=== PATIENT | male | born 1975 | race Caucasian/White ===

== ENCOUNTER 2020-06-14 07:21 | Outpatient (CLI) | payer OTHER, SELFPAY ==
--- NOTE | 2020-06-14 08:16 | ECHO_ITS ---
Patient Info Name: Sony Joyner Age: 45 years : 1975 Gender: Male Ht: 72 in Wt: 240 lbs BSA: 2.38 m2 HR: 76 bpm BP: 142 / 103 mmHg Technical Quality: Good Exam Date: 06/14/2020 8:27 AM Exam Location: [facility] Pulmonary Patient Status: Outpatient Admit Date: 06/14/2020 Staff Ordering Physician: Tramaine Jimenez DO Chronic Care Nurse: Mannie Camara RDCS, RT Attending Provider: Tramaine Jimenez DO Referring Physician: Tony VALDIVIA; Exam Type: CA echo doppler color flow Study Info Indications R06.02 - Shortness of breath Complete two-dimensional, color flow and Doppler transthoracic echocardiogram is performed. Summary 1. Left ventricular chamber dimension is normal. 2. Left ventricular systolic function is normal, estimated at 60-65%. 3. The left ventricular diastolic function is normal. 4. E/e' 9 is minimally elevated. 5. Global longitudinal strain is normal at -18.1%. Left Ventricle E/e' 9 is minimally elevated. Global longitudinal strain is normal at -18.1%. Left ventricular chamber dimension is normal. Left ventricular systolic function is normal, estimated at 60-65%. The left ventricular diastolic function is normal. Right Ventricle Right ventricular chamber dimension is normal. Right ventricular systolic function is normal. Left Atria Left atrial chamber dimension is normal. Right Atria Right atrial chamber dimension is normal. Aortic Valve The aortic valve is trileaflet. There is no aortic valve stenosis. There is no aortic valve regurgitation. Pulmonic Valve There is no pulmonic regurgitation. Mitral Valve There is no mitral valve stenosis. There is no mitral valve regurgitation. Tricuspid Valve There is no tricuspid valve regurgitation. Pericardium/Pleural There is no pericardial effusion. Inferior Vena Cava Normal inferior vena cava with >50% collapse upon inspiration consistent with normal right atrial pressure, 5 mmHg. Aorta The aortic root size at the sinus of Valsalva is normal. Left Ventricular Outflow Tract Name Value Normal LVOT 2D LVOT Diameter 2.4 cm LVOT Doppler LVOT Peak Gradient 2 mmHg LVOT Mean Gradient 1 mmHg LVOT VTI 15 cm LVOT VTI/AV VTI Ratio 0.8 LVOT Stroke Volume 71 ml LVOT CO 5.6 l/min LVOT CI 2.3 l/min/m2 Mitral Valve Name Value Normal MV Doppler MV Decel Antelope 430 cm/s2 MV PHT 59 ms MV Area (PHT) 3.8 cm2 4.0-5.0 MV Diastolic Function MV E Peak Velocity 87 cm/s MV A
--- NOTE | 2020-06-14 08:16 | EST_ITS ---
Patient Info Name: Sony Joyner Age: 45 years : 1975 Gender: Male Ht: 72 in Wt: 240 lbs BSA: 2.38 m2 Exam Date: 06/14/2020 10:18 AM Exam Location: [facility] Stress Patient Status: Outpatient Admit Date: 06/14/2020 Staff Ordering Physician: Tramaine Jimenez DO Attending Provider: Tramaine Jimenez DO Exercise Technologist: Isabella Gnozalez RDCS Exercise Physician: Tramaine Jimenez DO Exam Type: CA stress test treadmill Study Info Indications R06.02 - Shortness of breath R07.9 - Chest pain, unspecified A treadmill exercise stress test was performed. Summary 1. 1. Negative [facility]as exercise stress test for ischemic ST changes by ECG criteria. 2. 2. Good functional capacity, achieving 12 METs of workload. 3. 3. Appropriate HR response to exercise. 4. 4. Appropriate HR recovery at 1 minute post exercise. 5. 5. No imaging with stress testing. 6. 6. Patient informed of the above results. Protocol: [facility] Stress ECG Details Stage: REST Duration (min): 7 min : 39 sec Speed (mph): 0.0 Grade (%): 0 HR (bpm): 76 SBP (mmHg): 140 DBP (mmHg): 79 METS: --- Stage: REST Duration (min): 16 min : 58 sec Speed (mph): 0.0 Grade (%): 0 HR (bpm): 89 SBP (mmHg): 140 DBP (mmHg): 79 METS: --- Stage: STAGE 1 Duration (min): 1 min : 0 sec Speed (mph): 1.7 Grade (%): 10 HR (bpm): 105 SBP (mmHg): 140 DBP (mmHg): 79 METS: --- Stage: STAGE 1 Duration (min): 2 min : 0 sec Speed (mph): 1.7 Grade (%): 10 HR (bpm): 108 SBP (mmHg): 140 DBP (mmHg): 79 METS: --- Stage: STAGE 1 Duration (min): 3 min : 0 sec Speed (mph): 1.7 Grade (%): 10 HR (bpm): 112 SBP (mmHg): 136 DBP (mmHg): 82 METS: --- Stage: STAGE 2 Duration (min): 1 min : 0 sec Speed (mph): 2.5 Grade (%): 12 HR (bpm): 125 SBP (mmHg): 136 DBP (mmHg): 82 METS: --- Stage: STAGE 2 Duration (min): 2 min : 0 sec Speed (mph): 2.5 Grade (%): 12 HR (bpm): 130 SBP (mmHg): 150 DBP (mmHg): 80 METS: --- Stage: STAGE 2 Duration (min): 3 min : 0 sec Speed (mph): 2.5 Grade (%): 12 HR (bpm): 134 SBP (mmHg): 150 DBP (mmHg): 80 METS: --- Stage: STAGE 3 Duration (min): 1 min : 0 sec Speed (mph): 3.4 Grade (%): 14 HR (bpm): 142 SBP (mmHg): 158 DBP (mmHg): 79 METS: --- Stage: STAGE 3 Duration (min): 2 min : 0 sec Speed (mph): 3.4 Grade (%): 14 HR (bpm): 145 SBP (mmHg): 158 DBP (mmHg): 79 METS: --- Stage: STAGE 3 Duration (min): 3 min : 0 sec Speed (mph): 3.4 Grade (%): 14 HR (bpm): 147 SBP (mmHg): 152 DBP (mmHg): 80 METS: --- Stage: STAGE 4 Duration (min): 1 min : 0 sec Speed (mph): 4.2 Grade (%): 16 HR (bpm): 155 SBP (mmHg): 152 DBP (mmHg): 80 METS: --- Stage: STAGE 4 Duration (min):
== END 2020-06-14 07:22 | disposition home or self-care (01) ==
PROVIDERS: PCP Internal Medicine; Visit Provider Internal Medicine Cardiovascular Disease
DX: R07.9 Chest pain, unspecified (principal); R06.02 Shortness of breath
CPT/HCPCS: 93017; 93306

== ENCOUNTER 2020-07-19 09:21 | Outpatient (RCR) | payer OTHER, SELFPAY ==
[2020-07-19 09:28] VITALS: BMI 34.3
== END 2020-10-17 14:02 | disposition home or self-care (01) ==
LOC: ANHDMC 09:21
PROVIDERS: PCP Internal Medicine; Visit Provider Internal Medicine
DX: E66.9 Obesity, unspecified (principal); Z71.3 Dietary counseling and surveillance
CPT/HCPCS: 97802